=== PATIENT | male | born 1960 | race Hispanic/Latino ===

== ENCOUNTER 2017-03-07 16:01 | Emergency (ER) | payer OTHER ==
[2017-03-07] MEDS ORDERED: Morphine 4 MG/ML VIAL ONE (16:35)
[2017-03-07] MEDS ORDERED: Ondansetron HCl/PF 4 MG/2 ML Vial ONE ×2 (16:36→18:08)
[2017-03-07 16:48] LABS: Hematocrit 51.7 % (42.0-52.0); Mean Platelet Volume 7.1 fL (7.4-10.4); Red Blood Cell (RBC) Count 4.93 mill/uL (4.70-6.10); White Blood Cell (WBC) Count 8.8 thou/uL (4.8-10.8)
[2017-03-07] MEDS ORDERED: Iopamidol 370 76% 50 ML VIAL FS ONE (16:48)
[2017-03-07] MEDS ORDERED: ISOVUE-370 76%-LOCM 1 ML ONE (16:48)
[2017-03-07] MEDS ORDERED: Ketorolac Tromethamine 30 MG/ML VIAL ONE (17:01)
[2017-03-07 17:05] LABS: Band 3 % (5-11); Neutrophil 37 % (42-75); Reactive Lymphocytes 28 % (0-10)
[2017-03-07 17:06] LABS: ALT (SGPT) 35 U/L (8-55); AST (SGOT) 27 U/L (5-34); Alkaline Phosphatase 66 U/L (40-150); Anion Gap 13 mmol/L (10-20); BUN (Urea Nitrogen) 17 mg/dL (8.4-25.7); Bilirubin, Total 1.2 mg/dL (0.2-1.2); Calc. Creatinine Clearance 0 mL/min (70-130); Calcium 9.6 mg/dL (7.8-10.44); Carbon Dioxide 31 mmol/L (22-29); Chloride 99 mmol/L (98-107); Estimated GFR-MDRD 64; Globulin 3.7 g/dL (2.4-3.5); Lipase 22 U/L (8-78); Protein, Total 8.3 g/dL (6.0-8.3)
[2017-03-07 18:24] LABS: Bilirubin Negative (Negative); Blood, Urine Negative (Negative); Glucose, Urine (Dipstick) Negative (Negative); Ketone, Urine Negative (Negative); Nitrite Negative (Negative); Protein, Urine (Dipstick) Negative (Neg-Trace)
--- NOTE | 2017-03-07 19:51 | CT ---
CT ABDOMEN AND PELVIS WITH IV AND ORAL CONTRAST: History: Abdominal pain. Nausea and vomiting. Comparison: 11-25-10 FINDINGS: Minimal atelectasis is present at the right posterior lung base. Dystrophic calcification within the right liver lobe is stable. Post-operative changes of the upper abdomen include absence of the gallbl adder. A 0.2 cm calculus is present within a nondilated singh at the mid portion of the right kidney. The renal collecting systems and ureters are decompressed. Urinary bladder is unremarkable. No evide nce of bowel obstruction or inflammation. Small amount of fat protrudes through an umbilical hernia t hat does not contain bowel. IMPRESSION: 1. Tiny obstructing right renal calculus. 2. No acute abnormalities are otherwise demonstrated. POS: MARÍA
== END 2017-03-07 20:07 | disposition home or self-care (01) ==
LOC: ERS 16:01
DX: R11.2 Nausea with vomiting, unspecified (principal); R10.30 Lower abdominal pain, unspecified; K43.9 Ventral hernia without obstruction or gangrene; K21.9 Gastro-esophageal reflux disease without esophagitis; Z87.891 Personal history of nicotine dependence
CPT/HCPCS: 74177; 80053; 81003; 83690; 85025; 96361; 96374; 96375; 96376; J1885; J2270; J2405

== ENCOUNTER 2022-01-20 17:34 | Inpatient (IN) | payer OTHER ==
[2022-01-20 18:24] LABS: ALT (SGPT) 294 U/L (8-55); AST (SGOT) 201 U/L (5-34); Albumin 4.1 g/dL (3.4-4.8); Alkaline Phosphatase 72 U/L (40-110); Anion Gap 13 mmol/L (10-20); BUN (Urea Nitrogen) 10 mg/dL (8.4-25.7); Bilirubin, Total 0.8 mg/dL (0.2-1.2); CK (CPK) 67 U/L (30-200); Calc. Creatinine Clearance 0 mL/min (70-130); Calcium 9.7 mg/dL (7.8-10.44); Carbon Dioxide 27 mmol/L (23-31); Chloride 103 mmol/L (98-107); Estimated GFR 51; Glucose 109 mg/dL (80-115); Magnesium 1.7 mg/dL (1.6-2.6); Potassium 3.8 mmol/L (3.5-5.1); Protein, Total 8.1 g/dL (5.8-8.1); Sodium 139 mmol/L (136-145)
[2022-01-20] MEDS ORDERED: Magnesium 2 GM/50 ML BAG (IN WATER) ONE (18:30)
[2022-01-20 18:32] LABS: #Basophils 0.1 thou/uL (0.0-0.2); #Eosinphils 0.1 thou/uL (0.0-0.7); #Lymphocytes 4.6 thou/uL (1.20-3.40); #Monocytes 0.8 thou/uL (0.11-0.59); #Neutrophils 7.6 thou/uL (1.40-6.50); %Eosinophils 0.8 % (0.0-10.0); %Lymphocytes 34.6 % (21.0-51.0); %Monocytes 6.2 % (0.0-10.0); %Neutrophils 57.3 % (42.0-75.0); Hemoglobin 16.8 g/dL (14.0-18.0); Mean Corpuscular HGB CONC 31.9 g/dL (32.0-36.0); Mean Corpuscular Hemoglobin 34.3 pg (27.0-31.0); Platelet Count 274 thou/uL (130-400); RBC Distribution Width 12.2 % (11.5-14.5); Red Blood Cell (RBC) Count 4.89 mill/uL (4.70-6.10); White Blood Cell (WBC) Count 13.3 thou/uL (4.8-10.8)
[2022-01-20 18:45] LABS: MDiff Complete? YES; Macrocytosis SLIGHT = 6-15 cells (100X) (0-5/hpf); Platelet Morphology Comment Appears Adequate; Polychromasia SLIGHT = 2-3 cells (100X) (0-2/hpf)
[2022-01-20 18:46] LABS: CKMB 2.5 ng/mL (0-6.6)
[2022-01-20] MEDS ORDERED: Potassium Chloride 20 MEQ TAB ONE (19:45)
[2022-01-20] MEDS ORDERED: Acetaminophen 325 MG TAB PO PRN (20:14)
[2022-01-20] MEDS ORDERED: hydrALAZINE 20 MG/ML VIAL SLOW IVP PRN (20:14)
[2022-01-20] MEDS ORDERED: Electrolyte Replacement Protocol 1 EACH FS PRN (20:15)
[2022-01-20] MEDS ORDERED: Amiodarone 450 MG in Dextrose 5% in Water 250 ML IVPB SCH (20:45)
[2022-01-20 22:42] LABS: Prothrombin Time 13.7 sec (12.0-14.7)
[2022-01-20 22:43] VITALS: BMI 34.0
[2022-01-20 22:43] LABS: PTT 29.1 sec (22.9-36.1)
[2022-01-20 22:48] LABS: ALT (SGPT) 275 U/L (8-55); AST (SGOT) 200 U/L (5-34); Albumin 3.6 g/dL (3.4-4.8); Alkaline Phosphatase 65 U/L (40-110); Bilirubin, Direct 0.2 mg/dL (0.1-0.3); Bilirubin, Total 0.5 mg/dL (0.2-1.2); Phosphorus 2.5 mg/dL (2.3-4.7); Protein, Total 7.2 g/dL (5.8-8.1)
[2022-01-20] MEDS: Sodium Chloride 0.9% 1,000 ML IV SCH (22:56)
[2022-01-20] MEDS: Famotidine 20 MG TAB PO SCH (22:56)
[2022-01-20 23:27] LABS: CKMB 18.2 ng/mL (0-6.6)
[2022-01-20] MEDS: Enoxaparin Sodium 100 MG/ML SYRINGE SC SCH (23:39)
[2022-01-20] MEDS ORDERED: Loratadine 10 MG TAB PO SCH (23:59)
[2022-01-21 01:46] LABS: Bacteria/HPF None Seen HPF (None Seen); Bilirubin Negative (Negative); Blood, Urine Negative (Negative); Clarity Clear (Clear); Glucose, Urine (Dipstick) Normal (Negative); Ketone, Urine Negative (Negative); Leukocyte Negative Leu/uL (Negative); Nitrite Negative (Negative); Protein, Urine (Dipstick) Negative (Neg-Trace); RBC/HPF 0-3 HPF (0-3); Specific Gravity, Urine 1.022 (1.002-1.036); Squamous Epithelial 0-3 HPF (0-3); Urobilinogen Normal mg/dL (Less than 2); WBC/HPF 0-3 HPF (0-3)
[2022-01-21 01:49] LABS: Urine Culture Reflex No No
[2022-01-21 01:53] LABS: Amphetamine Not Detected (NotDetected); Barbiturates Screen Not Detected (NotDetected); Benzodiazepine Screen Not Detected (NotDetected); Cocaine Metabolite Screen Not Detected (NotDetected); Methadone Not Detected (NotDetected); Methamphetamine Not Detected (NotDetected); Opiate Screen Not Detected (NotDetected); Oxycodone Screen Not Detected (NotDetected); Phencyclidine (PCP) Not Detected (NotDetected); THC/Cannabinoid Screen Not Detected (NotDetected); Tricyclic Screen Not Detected (NotDetected)
[2022-01-21 06:01] LABS: #Basophils 0.1 thou/uL (0.0-0.2); #Eosinphils 0.1 thou/uL (0.0-0.7); #Lymphocytes 4.3 thou/uL (1.20-3.40); #Monocytes 0.9 thou/uL (0.11-0.59); #Neutrophils 5.1 thou/uL (1.40-6.50); %Basophils 0.9 % (0.0-1.0); %Eosinophils 1.3 % (0.0-10.0); %Lymphocytes 40.9 % (21.0-51.0); %Monocytes 8.6 % (0.0-10.0); %Neutrophils 48.3 % (42.0-75.0); Hemoglobin 15.3 g/dL (14.0-18.0); Mean Corpuscular HGB CONC 31.5 g/dL (32.0-36.0); Mean Corpuscular Hemoglobin 33.9 pg (27.0-31.0); Mean Platelet Volume 8.1 fL (7.4-10.4); Platelet Count 285 thou/uL (130-400); RBC Distribution Width 12.4 % (11.5-14.5); White Blood Cell (WBC) Count 10.6 thou/uL (4.8-10.8)
[2022-01-21 06:21] LABS: Anion Gap 11 mmol/L (10-20); BUN (Urea Nitrogen) 13 mg/dL (8.4-25.7); Calc. Creatinine Clearance 78 mL/min (70-130); Calcium 8.8 mg/dL (7.8-10.44); Carbon Dioxide 24 mmol/L (23-31); Cardiac Risk 5.2 (Less than 4.5); Chloride 107 mmol/L (98-107); Cholesterol 198 mg/dl (< 200 Desired); Estimated GFR 60; Glucose 106 mg/dL (80-115); HDL Cholesterol 38 mg/dL (>60 Neg Risk); LDL Cholesterol, Calculated 135 mg/dL; Potassium 4.2 mmol/L (3.5-5.1); Sodium 138 mmol/L (136-145); Triglycerides 123 mg/dL (Less than 150)
[2022-01-21] MEDS ORDERED: FLU VACC QS2022-23(6MOS UP)/PF 60 MCG/0.5 ML SYRINGE IM ONE (09:00)
[2022-01-21] MEDS: Famotidine 20 MG TAB PO SCH ×2 (09:05→20:10)
[2022-01-21] MEDS: Sodium Chloride 0.9% 1,000 ML IV SCH ×2 (09:06→20:13)
[2022-01-21] MEDS: Enoxaparin Sodium 100 MG/ML SYRINGE SC SCH ×2 (11:56→21:45)
[2022-01-21] MEDS: diphenhydrAMINE 25 MG CAP PO PRN ×2 (11:56→21:45)
[2022-01-21] MEDS ORDERED: Communication Order-Pharmacy FS SCH (12:00)
[2022-01-21] MEDS ORDERED: Aspirin 81 mg Enteric Coated Tablet PO SCH (12:15)
[2022-01-21] MEDS: Metoprolol Tartrate 25 MG TAB PO SCH (20:10)
[2022-01-22 05:17] LABS: ALT (SGPT) 217 U/L (8-55); AST (SGOT) 150 U/L (5-34); Albumin 3.4 g/dL (3.4-4.8); Alkaline Phosphatase 69 U/L (40-110); Anion Gap 13 mmol/L (10-20); BUN (Urea Nitrogen) 16 mg/dL (8.4-25.7); Bilirubin, Total 0.5 mg/dL (0.2-1.2); Calc. Creatinine Clearance 84 mL/min (70-130); Calcium 8.6 mg/dL (7.8-10.44); Carbon Dioxide 21 mmol/L (23-31); Chloride 108 mmol/L (98-107); Estimated GFR 66; Globulin 3.9 g/dL (2.4-3.5); Glucose 101 mg/dL (80-115); Magnesium 1.9 mg/dL (1.6-2.6); Potassium 4.6 mmol/L (3.5-5.1); Protein, Total 7.3 g/dL (5.8-8.1); Sodium 137 mmol/L (136-145)
[2022-01-22] MEDS: Famotidine 20 MG TAB PO SCH ×2 (06:16→21:14)
[2022-01-22] MEDS: Metoprolol Tartrate 25 MG TAB PO SCH ×2 (06:16→21:14)
[2022-01-22] MEDS ORDERED: Lidocaine 1% (PF) 30 ML VIAL ONE (06:46)
[2022-01-22] MEDS ORDERED: Midazolam HCl 2 mg/2 ml Vial ONE (07:20)
[2022-01-22] MEDS ORDERED: Fentanyl 100 MCG/2 ML VIAL ONE (07:20)
[2022-01-22] MEDS ORDERED: Heparin 10,000 UNITS/ 10 ML VIAL ONE (07:58)
[2022-01-22 08:05] LABS: Hemoglobin 15.3 g/dL (14.0-18.0); Mean Corpuscular HGB CONC 31.6 g/dL (32.0-36.0); Mean Corpuscular Hemoglobin 34.1 pg (27.0-31.0); Mean Platelet Volume 7.9 fL (7.4-10.4); Platelet Count 286 thou/uL (130-400); RBC Distribution Width 12.4 % (11.5-14.5); Red Blood Cell (RBC) Count 4.48 mill/uL (4.70-6.10)
[2022-01-22] MEDS ORDERED: Adenosine 6 MG/2 ML VIAL ONE (08:07)
[2022-01-22 08:27] LABS: Eosinophils 1 % (0-10); Lymphocytes 52 % (21-51); MDiff Complete? YES; Macrocytosis SLIGHT = 6-15 cells (100X) (0-5/hpf); Monocytes 7 % (0-10); Neutrophil 40 % (42-75); Platelet Morphology Comment Appears Adequate; Polychromasia SLIGHT = 2-3 cells (100X) (0-2/hpf)
[2022-01-22] MEDS ORDERED: Magnesium 2 GM/50 ML(in water) 2 GM in Premix Bag 1 BAG IVPB SCH (09:00)
[2022-01-22] MEDS ORDERED: Aspirin 81 mg Enteric Coated Tablet PO SCH (09:00)
[2022-01-22] MEDS ORDERED: Communication Order-Pharmacy FS SCH (13:01)
[2022-01-22] MEDS ORDERED: Iopamidol 370 76% 100 ML VIAL ONE (13:29)
[2022-01-22] MEDS ORDERED: Magnesium Oxide 400 MG TAB PO SCH (17:02)
[2022-01-22] MEDS: diphenhydrAMINE 25 MG CAP PO PRN (18:19)
[2022-01-22] MEDS: Sodium Chloride 0.9% 1,000 ML IV SCH (19:51)
[2022-01-23] MEDS ORDERED: ceFAZolin 2 GM/Dextrose 50 ML 2 GM in Premix Bag 1 BAG IVPB SCH (00:45)
[2022-01-23] MEDS: Sodium Chloride 0.9% 1,000 ML IV SCH (02:38)
[2022-01-23 05:10] LABS: #Basophils 0.1 thou/uL (0.0-0.2); #Eosinphils 0.2 thou/uL (0.0-0.7); #Lymphocytes 3.6 thou/uL (1.20-3.40); #Monocytes 0.7 thou/uL (0.11-0.59); %Basophils 0.8 % (0.0-1.0); %Eosinophils 2.8 % (0.0-10.0); %Lymphocytes 47.4 % (21.0-51.0); %Monocytes 9.3 % (0.0-10.0); %Neutrophils 39.7 % (42.0-75.0); Hemoglobin 16.1 g/dL (14.0-18.0); Mean Corpuscular Hemoglobin 34.4 pg (27.0-31.0); Mean Platelet Volume 8.3 fL (7.4-10.4); Platelet Count 279 thou/uL (130-400); RBC Distribution Width 12.3 % (11.5-14.5); White Blood Cell (WBC) Count 7.5 thou/uL (4.8-10.8)
[2022-01-23 05:30] LABS: ALT (SGPT) 230 U/L (8-55); AST (SGOT) 157 U/L (5-34); Albumin 3.7 g/dL (3.4-4.8); Alkaline Phosphatase 74 U/L (40-110); Anion Gap 13 mmol/L (10-20); BUN (Urea Nitrogen) 15 mg/dL (8.4-25.7); Bilirubin, Total 0.6 mg/dL (0.2-1.2); Calc. Creatinine Clearance 91 mL/min (70-130); Calcium 9.4 mg/dL (7.8-10.44); Carbon Dioxide 23 mmol/L (23-31); Chloride 105 mmol/L (98-107); Estimated GFR 73; Globulin 3.8 g/dL (2.4-3.5); Glucose 103 mg/dL (80-115); Potassium 4.3 mmol/L (3.5-5.1); Protein, Total 7.5 g/dL (5.8-8.1); Sodium 137 mmol/L (136-145)
[2022-01-23] MEDS: diphenhydrAMINE 25 MG CAP PO PRN (06:49)
[2022-01-23] MEDS: Metoprolol Tartrate 25 MG TAB PO SCH (06:49)
[2022-01-23] MEDS ORDERED: Albumin 5% 500 ML ONE (09:12)
[2022-01-23] MEDS ORDERED: fentaNYL Citrate/PF 100 MCG/2 ML SYRINGE ONE ×2 (09:21→09:51)
[2022-01-23] MEDS ORDERED: Vecuronium 10 MG VIAL ONE (09:22)
[2022-01-23] MEDS ORDERED: Phenylephrine 10 MG/ML VIAL ONE (09:22)
[2022-01-23] MEDS ORDERED: Norepinephrine 4 MG/4 ML VIAL ONE (09:22)
[2022-01-23] MEDS ORDERED: Nitroglycerin 50 MG/250 ML BOT 250 ML ONE (09:22)
[2022-01-23] MEDS ORDERED: Midazolam HCl 5 mg/5 ml Vial ONE (09:22)
[2022-01-23] MEDS ORDERED: Heparin 10,000 UNITS/1 ML VIAL 30,000 UNITS in Sodium Chloride 0.9% 1,000 ML FS SCH (09:45)
[2022-01-23] MEDS ORDERED: CEFAZOLIN 2 GM VIAL ONE (09:54)
[2022-01-23] MEDS ORDERED: Sodium Chloride 0.9% 100 ML ONE (09:54)
[2022-01-23] MEDS ORDERED: PHENYLEPHRINE-NS 100 MCG/ML 10 ML SYRINGE ONE ×2 (10:02→11:52)
[2022-01-23] MEDS ORDERED: Heparin 5,000 UNITS/ML VIAL ONE (10:02)
[2022-01-23] MEDS ORDERED: PROPOFOL 200 MG/20 ML VIAL ONE (10:02)
[2022-01-23] MEDS ORDERED: Thrombin 5000 UNITS/5 ML VIAL ONE (10:02)
[2022-01-23] MEDS ORDERED: ePHEDrine 50 MG/ML VIAL ONE (10:02)
[2022-01-23] MEDS ORDERED: Lidocaine 2% PF 100 mg/5 ml Syringe ONE (10:02)
[2022-01-23] MEDS ORDERED: Glycopyrrolate 0.2 MG/ML 5 ML SYRINGE ONE (10:02)
[2022-01-23] MEDS ORDERED: Cardioplegic Soln 1,000 ML BAG ONE (10:02)
[2022-01-23] MEDS ORDERED: Aminocaproic Acid 5 GM/20 ML VIAL ONE (10:02)
[2022-01-23] MEDS ORDERED: Mannitol 12.5 GM/50 ML ONE (10:02)
[2022-01-23] MEDS ORDERED: Heparin 30,000 units/30 ml VIAL ONE (10:02)
[2022-01-23] MEDS ORDERED: Magnesium Sulfate 1 GM/2 ML VIAL ONE (10:02)
[2022-01-23] MEDS ORDERED: Protamine Sulfate 250 MG/25 ML VIAL ONE (10:02)
[2022-01-23] MEDS ORDERED: Sodium Bicarb 50 MEQ/50 ML Abboject 8.4% SYRINGE ONE (10:02)
[2022-01-23] MEDS ORDERED: Papaverine 60 MG/2 ML VIAL ONE (10:02)
[2022-01-23] MEDS ORDERED: Rocuronium Bromide 10 MG/ML (10ML VIAL) ONE (10:02)
[2022-01-23] MEDS ORDERED: Calcium Chloride 1 GM/10 ML Abboject SYRINGE ONE (10:02)
[2022-01-23 13:36] LABS: SARS-CoV-2 PCR NAA for Saliva Not Detected (NotDetected)
[2022-01-23] MEDS ORDERED: Acetaminophen 325 MG TAB PO PRN (14:12)
[2022-01-23] MEDS ORDERED: Morphine 2 MG/ML VIAL SLOW IVP PRN (14:12)
[2022-01-23] MEDS ORDERED: NOREPINEPHRINE 8 MG/250 ML-D5W 250 ML IVPB PRN (14:12)
[2022-01-23] MEDS ORDERED: Mag-Al 1200 mg/1200 mg/30 ML UDCUP PO PRN (14:12)
[2022-01-23] MEDS ORDERED: Bisacodyl 10 MG SUPP PR PRN (14:12)
[2022-01-23] MEDS ORDERED: Fentanyl 100 MCG/2 ML VIAL SLOW IVP PRN ×2 (14:12)
[2022-01-23] MEDS ORDERED: Post-Op Insulin Drip Protocol IVPB SCH (14:12)
[2022-01-23] MEDS ORDERED: hydrALAZINE 20 MG/ML VIAL SLOW IVP PRN (14:12)
[2022-01-23] MEDS ORDERED: Ondansetron PF 4 MG/2 ML Vial IVP PRN (14:12)
[2022-01-23] MEDS ORDERED: niCARdipine 25 MG in Sodium Chloride 0.9% 250 ML 250 ML IVPB PRN (14:12)
[2022-01-23] MEDS ORDERED: Hetastarch 6% 500 ML 500 ML IVPB PRN (14:12)
[2022-01-23] MEDS ORDERED: Potassium Chloride 20 MEQ/100 ML PREMIX BAG IVPB PRN (14:12)
[2022-01-23] MEDS ORDERED: Guaifenesin DM 100-10/5 ML UDCUP PO PRN (14:12)
[2022-01-23] MEDS ORDERED: Bisacodyl 5 MG TAB PO PRN (14:12)
[2022-01-23] MEDS ORDERED: Fentanyl 100 MCG/2 ML VIAL ONE (14:20)
[2022-01-23 14:22] LABS: Actual Bicarbonate (HCO3a) 19.6 mEq/L (22-28); Base Excess (BEa) -5.7 mEq/L (-2.0 to +3.0); CO2 Tension 38.3 mmHg (35.0-45.0); Calcium, Ionized (arterial) 1.11 mmol/L (1.12-1.30); Carboxyhemoglobin (COHb) 0.6 gm% (0.0-3.0); Hemoglobin (Hb) 16.8 g/dL (14.0-18.0); O2 Tension (PaO2), arterial 139.7 mmHg (> 80.0); Potassium - ABG Lab 5.37 mmol/L (3.70-5.30); pH, Arterial 7.33 (7.35-7.45)
[2022-01-23 14:24] LABS: ALV-art Gradient 240.225 mmHg (0-20); Puncture Site Arterial Line
[2022-01-23 14:41] LABS: INR-International Normal Ratio 1.2; Prothrombin Time 14.9 sec (12.0-14.7)
[2022-01-23] MEDS ORDERED: Dextrose 50% Abboject 50 ML SYRINGE SLOW IVP PRN (14:45)
[2022-01-23] MEDS ORDERED: HUMULIN R 100 UNITS in Sodium Chloride 0.9% 100 ML IVPB SCH (14:45)
[2022-01-23] MEDS ORDERED: Dextrose 5% in Water 1,000 ML IV PRN (14:45)
[2022-01-23 14:46] LABS: Anion Gap 14 mmol/L (10-20); BUN (Urea Nitrogen) 15 mg/dL (8.4-25.7); Calc. Creatinine Clearance 88 mL/min (70-130); Calcium 8.1 mg/dL (7.8-10.44); Carbon Dioxide 18 mmol/L (23-31); Chloride 110 mmol/L (98-107); Estimated GFR 70; Glucose 136 mg/dL (80-115); Potassium 5.5 mmol/L (3.5-5.1); Sodium 136 mmol/L (136-145)
[2022-01-23] MEDS: Lactated Ringer's 1,000 ML IV SCH (14:48)
[2022-01-23 14:52] LABS: Hemoglobin 16.5 g/dL (14.0-18.0); Mean Corpuscular Hemoglobin 34.7 pg (27.0-31.0); Mean Platelet Volume 8.4 fL (7.4-10.4); Platelet Count 170 thou/uL (130-400); RBC Distribution Width 12.4 % (11.5-14.5); Red Blood Cell (RBC) Count 4.75 mill/uL (4.70-6.10); White Blood Cell (WBC) Count 25.4 thou/uL (4.8-10.8)
[2022-01-23] MEDS: Insulin Regular 300 UNITS/3 ML VIAL SC PRN ×2 (14:53→17:04)
[2022-01-23 15:11] LABS: Band 14 % (5-11); Eosinophils 1 % (0-10); Lymphocytes 11 % (21-51); MDiff Complete? YES; Macrocytosis SLIGHT = 6-15 cells (100X) (0-5/hpf); Monocytes 3 % (0-10); Neutrophil 70 % (42-75); Platelet Morphology Comment Appears Adequate; Polychromasia SLIGHT = 2-3 cells (100X) (0-2/hpf); Reactive Lymphocytes 1 % (0-10)
[2022-01-23 16:58] LABS: Actual Bicarbonate (HCO3a) 19.6 mEq/L (22-28); Base Excess (BEa) -5.7 mEq/L (-2.0 to +3.0); CO2 Tension 38.1 mmHg (35.0-45.0); Carboxyhemoglobin (COHb) 0.8 gm% (0.0-3.0); Hemoglobin (Hb) 15.1 g/dL (14.0-18.0); O2 Tension (PaO2), arterial 79.1 mmHg (> 80.0); Potassium - ABG Lab 5.11 mmol/L (3.70-5.30); pH, Arterial 7.33 (7.35-7.45)
[2022-01-23 17:00] LABS: ALV-art Gradient 87.175 mmHg (0-20); Puncture Site Arterial Line
[2022-01-23] MEDS: Ketorolac Tromethamine 30 MG/ML VIAL IVP SCH (17:00)
[2022-01-23] MEDS: CEFAZOLIN 2 GM in Sodium Chloride 0.9% 100 ML IVPB SCH (17:24)
[2022-01-23] MEDS: HYDROcodone/Acetaminophen 5/325 mg Tablet PO PRN (17:44)
[2022-01-23 19:35] LABS: Potassium 5.6 mmol/L (3.5-5.1)
[2022-01-23] MEDS: Famotidine/PF 20 mg/2ml Vial SLOW IVP SCH (20:06)
[2022-01-24] MEDS: Ketorolac Tromethamine 30 MG/ML VIAL IVP SCH ×5 (00:15→23:40)
[2022-01-24] MEDS: CEFAZOLIN 2 GM in Sodium Chloride 0.9% 100 ML IVPB SCH ×2 (02:30→11:08)
[2022-01-24 04:16] LABS: #Lymphocytes 3.4 thou/uL (1.20-3.40); #Monocytes 1.2 thou/uL (0.11-0.59); #Neutrophils 8.2 thou/uL (1.40-6.50); %Basophils 0.3 % (0.0-1.0); %Eosinophils 0.3 % (0.0-10.0); %Lymphocytes 26.2 % (21.0-51.0); %Monocytes 9.7 % (0.0-10.0); %Neutrophils 63.5 % (42.0-75.0); Hemoglobin 12.2 g/dL (14.0-18.0); Mean Corpuscular HGB CONC 31.9 g/dL (32.0-36.0); Mean Corpuscular Hemoglobin 34.6 pg (27.0-31.0); Mean Platelet Volume 8.5 fL (7.4-10.4); Platelet Count 151 thou/uL (130-400); RBC Distribution Width 12.4 % (11.5-14.5); Red Blood Cell (RBC) Count 3.51 mill/uL (4.70-6.10); White Blood Cell (WBC) Count 12.8 thou/uL (4.8-10.8)
[2022-01-24 04:28] LABS: Anion Gap 11 mmol/L (10-20); BUN (Urea Nitrogen) 17 mg/dL (8.4-25.7); Calc. Creatinine Clearance 94 mL/min (70-130); Calcium 7.9 mg/dL (7.8-10.44); Carbon Dioxide 23 mmol/L (23-31); Chloride 107 mmol/L (98-107); Estimated GFR 70; Glucose 124 mg/dL (80-115); Potassium 4.6 mmol/L (3.5-5.1); Sodium 136 mmol/L (136-145)
[2022-01-24] MEDS: HYDROcodone/Acetaminophen 5/325 mg Tablet PO PRN ×2 (09:47→17:42)
[2022-01-24] MEDS: Aspirin 325 MG TAB PO SCH (09:47)
[2022-01-24] MEDS: Famotidine/PF 20 mg/2ml Vial SLOW IVP SCH ×2 (09:48→20:37)
[2022-01-24] MEDS: Lactated Ringer's 1,000 ML IV SCH (10:51)
[2022-01-24] MEDS ORDERED: Insulin Glargine 30 UNITS/0.3 ML VIAL SC PRN (14:35)
[2022-01-24] MEDS: Latanoprost 0.005% Ophth Soln 2.5 ml Bottle EA EYE SCH (20:41)
[2022-01-25 04:38] LABS: #Eosinphils 0.2 thou/uL (0.0-0.7); #Lymphocytes 4.8 thou/uL (1.20-3.40); #Monocytes 1.6 thou/uL (0.11-0.59); #Neutrophils 9.2 thou/uL (1.40-6.50); %Basophils 0.3 % (0.0-1.0); %Eosinophils 1.1 % (0.0-10.0); %Lymphocytes 30.1 % (21.0-51.0); %Monocytes 9.9 % (0.0-10.0); %Neutrophils 58.6 % (42.0-75.0); Mean Corpuscular HGB CONC 31.5 g/dL (32.0-36.0); Mean Corpuscular Hemoglobin 34.3 pg (27.0-31.0); Mean Platelet Volume 8.5 fL (7.4-10.4); Platelet Count 158 thou/uL (130-400); RBC Distribution Width 12.7 % (11.5-14.5); Red Blood Cell (RBC) Count 3.21 mill/uL (4.70-6.10); White Blood Cell (WBC) Count 15.8 thou/uL (4.8-10.8)
[2022-01-25 05:04] LABS: Anion Gap 11 mmol/L (10-20); BUN (Urea Nitrogen) 16 mg/dL (8.4-25.7); Calc. Creatinine Clearance 109 mL/min (70-130); Calcium 7.8 mg/dL (7.8-10.44); Carbon Dioxide 22 mmol/L (23-31); Chloride 109 mmol/L (98-107); Estimated GFR 83; Glucose 120 mg/dL (80-115); Potassium 4.4 mmol/L (3.5-5.1); Sodium 138 mmol/L (136-145)
[2022-01-25 05:21] LABS: ALT (SGPT) 83 U/L (8-55); AST (SGOT) 80 U/L (5-34); Albumin 3.2 g/dL (3.4-4.8); Alkaline Phosphatase 40 U/L (40-110); Anion Gap 10 mmol/L (10-20); BUN (Urea Nitrogen) 17 mg/dL (8.4-25.7); Bilirubin, Direct 0.3 mg/dL (0.1-0.3); Bilirubin, Total 0.7 mg/dL (0.2-1.2); Calc. Creatinine Clearance 102 mL/min (70-130); Calcium 7.8 mg/dL (7.8-10.44); Carbon Dioxide 23 mmol/L (23-31); Chloride 108 mmol/L (98-107); Estimated GFR 77; Globulin 2.2 g/dL (2.4-3.5); Glucose 120 mg/dL (80-115); Potassium 4.4 mmol/L (3.5-5.1); Protein, Total 5.4 g/dL (5.8-8.1); Sodium 137 mmol/L (136-145)
[2022-01-25] MEDS: Ketorolac Tromethamine 30 MG/ML VIAL IVP SCH ×3 (06:03→16:46)
[2022-01-25] MEDS ORDERED: Nitroglycerin 0.4 MG TAB (25 Tab Bottle) SL PRN (07:10)
[2022-01-25] MEDS: Polyethylene Glycol 3350 17 GM Packet PO SCH (07:49)
[2022-01-25] MEDS: Aspirin 325 MG TAB PO SCH (07:50)
[2022-01-25] MEDS: Famotidine 20 MG TAB PO SCH ×2 (07:50→20:03)
[2022-01-25] MEDS: diphenhydrAMINE 25 MG CAP PO PRN ×3 (07:50→20:11)
[2022-01-25] MEDS: Potassium Chloride 20 MEQ TAB PO SCH (07:51)
[2022-01-25] MEDS: Furosemide 40 MG TAB PO SCH ×2 (07:51→20:03)
[2022-01-25] MEDS: Metoprolol Tartrate 25 MG TAB PO SCH ×2 (09:38→20:03)
[2022-01-25] MEDS: HYDROcodone/Acetaminophen 5/325 mg Tablet PO PRN (15:11)
[2022-01-25] MEDS: Enoxaparin Sodium 40 MG/0.4 ML SYRINGE SC SCH (20:02)
[2022-01-25] MEDS: Latanoprost 0.005% Ophth Soln 2.5 ml Bottle EA EYE SCH (20:04)
[2022-01-26] MEDS: HYDROcodone/Acetaminophen 5/325 mg Tablet PO PRN ×2 (00:42→07:53)
[2022-01-26] MEDS: Ketorolac Tromethamine 30 MG/ML VIAL IVP SCH ×2 (00:43→05:58)
[2022-01-26 05:03] LABS: #Basophils 0.1 thou/uL (0.0-0.2); #Eosinphils 0.3 thou/uL (0.0-0.7); #Lymphocytes 4.9 thou/uL (1.20-3.40); #Monocytes 1.4 thou/uL (0.11-0.59); #Neutrophils 8.5 thou/uL (1.40-6.50); %Basophils 0.4 % (0.0-1.0); %Eosinophils 2.1 % (0.0-10.0); %Lymphocytes 32.3 % (21.0-51.0); %Monocytes 9.2 % (0.0-10.0); Hemoglobin 11.2 g/dL (14.0-18.0); Mean Corpuscular HGB CONC 32.3 g/dL (32.0-36.0); Mean Corpuscular Hemoglobin 35.1 pg (27.0-31.0); Mean Platelet Volume 8.6 fL (7.4-10.4); Platelet Count 201 thou/uL (130-400); RBC Distribution Width 12.7 % (11.5-14.5); White Blood Cell (WBC) Count 15.2 thou/uL (4.8-10.8)
[2022-01-26 05:20] LABS: ALT (SGPT) 75 U/L (8-55); AST (SGOT) 78 U/L (5-34); Albumin 3.4 g/dL (3.4-4.8); Alkaline Phosphatase 65 U/L (40-110); Anion Gap 11 mmol/L (10-20); BUN (Urea Nitrogen) 19 mg/dL (8.4-25.7); Bilirubin, Direct 0.3 mg/dL (0.1-0.3); Bilirubin, Total 0.8 mg/dL (0.2-1.2); Calc. Creatinine Clearance 92 mL/min (70-130); Calcium 8.6 mg/dL (7.8-10.44); Carbon Dioxide 26 mmol/L (23-31); Chloride 105 mmol/L (98-107); Estimated GFR 68; Glucose 91 mg/dL (80-115); Potassium 4.5 mmol/L (3.5-5.1); Protein, Total 6.7 g/dL (5.8-8.1); Sodium 137 mmol/L (136-145)
[2022-01-26] MEDS: diphenhydrAMINE 25 MG CAP PO PRN ×2 (07:53→23:17)
[2022-01-26] MEDS: Aspirin 325 MG TAB PO SCH (07:53)
[2022-01-26] MEDS: Polyethylene Glycol 3350 17 GM Packet PO SCH (07:53)
[2022-01-26] MEDS: Metoprolol Tartrate 25 MG TAB PO SCH ×3 (07:54→23:15)
[2022-01-26] MEDS: Famotidine 20 MG TAB PO SCH ×2 (07:54→23:15)
[2022-01-26] MEDS: Potassium Chloride 20 MEQ TAB PO SCH (07:54)
[2022-01-26] MEDS: Furosemide 40 MG TAB PO SCH ×2 (07:55→23:30)
[2022-01-26] MEDS: Latanoprost 0.005% Ophth Soln 2.5 ml Bottle EA EYE SCH (23:00)
[2022-01-26] MEDS: Enoxaparin Sodium 40 MG/0.4 ML SYRINGE SC SCH (23:01)
[2022-01-26] MEDS: Atorvastatin Calcium 10 MG TAB PO SCH (23:01)
[2022-01-27] MEDS: diphenhydrAMINE 25 MG CAP PO PRN (05:06)
[2022-01-27] MEDS ORDERED: diphenhydrAMINE 25 MG CAP PO PRN (07:41)
[2022-01-27 08:09] LABS: #Eosinphils 0.4 thou/uL (0.0-0.7); #Lymphocytes 4.3 thou/uL (1.20-3.40); #Monocytes 1.5 thou/uL (0.11-0.59); #Neutrophils 6.4 thou/uL (1.40-6.50); %Basophils 0.2 % (0.0-1.0); %Lymphocytes 34.2 % (21.0-51.0); %Monocytes 11.7 % (0.0-10.0); Hemoglobin 11.1 g/dL (14.0-18.0); Mean Corpuscular Hemoglobin 34.9 pg (27.0-31.0); Mean Platelet Volume 7.6 fL (7.4-10.4); Platelet Count 271 thou/uL (130-400); RBC Distribution Width 13.2 % (11.5-14.5); Red Blood Cell (RBC) Count 3.18 mill/uL (4.70-6.10); White Blood Cell (WBC) Count 12.5 thou/uL (4.8-10.8)
[2022-01-27 08:22] LABS: ALT (SGPT) 80 U/L (8-55); AST (SGOT) 80 U/L (5-34); Albumin 3.4 g/dL (3.4-4.8); Alkaline Phosphatase 51 U/L (40-110); Anion Gap 13 mmol/L (10-20); BUN (Urea Nitrogen) 20 mg/dL (8.4-25.7); Bilirubin, Total 0.8 mg/dL (0.2-1.2); Calc. Creatinine Clearance 86 mL/min (70-130); Calcium 8.8 mg/dL (7.8-10.44); Carbon Dioxide 25 mmol/L (23-31); Chloride 104 mmol/L (98-107); Estimated GFR 64; Globulin 2.9 g/dL (2.4-3.5); Glucose 96 mg/dL (80-115); Potassium 4.7 mmol/L (3.5-5.1); Protein, Total 6.3 g/dL (5.8-8.1); Sodium 137 mmol/L (136-145)
[2022-01-27] MEDS: Potassium Chloride 20 MEQ TAB PO SCH (09:39)
[2022-01-27] MEDS: Furosemide 40 MG TAB PO SCH ×2 (09:40→22:36)
[2022-01-27] MEDS: Famotidine 20 MG TAB PO SCH ×2 (09:40→22:34)
[2022-01-27] MEDS: Aspirin 325 MG TAB PO SCH (09:40)
[2022-01-27] MEDS: Metoprolol Tartrate 25 MG TAB PO SCH ×2 (09:42→22:34)
[2022-01-27] MEDS: Polyethylene Glycol 3350 17 GM Packet PO SCH (09:44)
[2022-01-27] MEDS: HYDROcodone/Acetaminophen 5/325 mg Tablet PO PRN (17:57)
[2022-01-27] MEDS: Enoxaparin Sodium 40 MG/0.4 ML SYRINGE SC SCH (22:33)
[2022-01-27] MEDS: Atorvastatin Calcium 10 MG TAB PO SCH (22:34)
[2022-01-27] MEDS: Latanoprost 0.005% Ophth Soln 2.5 ml Bottle EA EYE SCH (22:35)
[2022-01-28] MEDS: HYDROcodone/Acetaminophen 5/325 mg Tablet PO PRN (01:40)
[2022-01-28 05:02] LABS: #Eosinphils 0.4 thou/uL (0.0-0.7); #Lymphocytes 5.2 thou/uL (1.20-3.40); #Monocytes 1.5 thou/uL (0.11-0.59); #Neutrophils 4.6 thou/uL (1.40-6.50); %Basophils 0.4 % (0.0-1.0); %Eosinophils 3.3 % (0.0-10.0); %Lymphocytes 44.5 % (21.0-51.0); %Monocytes 12.4 % (0.0-10.0); %Neutrophils 39.3 % (42.0-75.0); Hemoglobin 11.4 g/dL (14.0-18.0); Mean Corpuscular HGB CONC 32.4 g/dL (32.0-36.0); Mean Corpuscular Hemoglobin 35.1 pg (27.0-31.0); Mean Platelet Volume 7.5 fL (7.4-10.4); Platelet Count 318 thou/uL (130-400); RBC Distribution Width 12.7 % (11.5-14.5); Red Blood Cell (RBC) Count 3.24 mill/uL (4.70-6.10); White Blood Cell (WBC) Count 11.7 thou/uL (4.8-10.8)
[2022-01-28] MEDS ORDERED: Furosemide 40 MG TAB PO SCH (07:30)
[2022-01-28 07:56] LABS: ALT (SGPT) 82 U/L (8-55); AST (SGOT) 75 U/L (5-34); Albumin 3.5 g/dL (3.4-4.8); Alkaline Phosphatase 60 U/L (40-110); Anion Gap 18 mmol/L (10-20); BUN (Urea Nitrogen) 24 mg/dL (8.4-25.7); Bilirubin, Total 0.6 mg/dL (0.2-1.2); Calc. Creatinine Clearance 75 mL/min (70-130); Calcium 9.3 mg/dL (7.8-10.44); Carbon Dioxide 22 mmol/L (23-31); Chloride 105 mmol/L (98-107); Estimated GFR 57; Globulin 3.2 g/dL (2.4-3.5); Glucose 95 mg/dL (80-115); Potassium 4.7 mmol/L (3.5-5.1); Protein, Total 6.7 g/dL (5.8-8.1); Sodium 140 mmol/L (136-145)
[2022-01-28] MEDS ORDERED: Potassium Chloride 10 MEQ TAB PO SCH (08:00)
[2022-01-28] MEDS: Metoprolol Tartrate 25 MG TAB PO SCH (10:20)
[2022-01-28] MEDS: Aspirin 325 MG TAB PO SCH (10:20)
[2022-01-28] MEDS: Famotidine 20 MG TAB PO SCH (10:21)
[2022-01-28] MEDS: Polyethylene Glycol 3350 17 GM Packet PO SCH (10:21)
[2022-01-28 13:02] VITALS: BP 106/55; TEMP 98.3
== END 2022-01-28 13:30 | disposition home or self-care (01) | DRG 234 ==
LOC: ERS 17:34 → SUATTDRO 17:34 → 2SW 19:53 → OBSVTOIN 01-21 16:31 → CCU 01-23 08:20 → 2NO 01-26 21:57
PROVIDERS: ADMIT Student in an Organized Health Care Education/Training Program; ATTEND Internal Medicine
PROC: 4A023N7 Measurement of Cardiac Sampling and Pressure, Left Heart, Percutaneous Approach (ICD-10-PCS; 2022-01-22)
PROC: B2111ZZ Fluoroscopy of Multiple Coronary Arteries using Low Osmolar Contrast (ICD-10-PCS; 2022-01-22)
PROC: B2151ZZ Fluoroscopy of Left Heart using Low Osmolar Contrast (ICD-10-PCS; 2022-01-22)
PROC: 02100Z9 Bypass Coronary Artery, One Artery from Left Internal Mammary, Open Approach (ICD-10-PCS; principal; 2022-01-23)
PROC: 021209W Bypass Coronary Artery, Three Arteries from Aorta with Autologous Venous Tissue, Open Approach (ICD-10-PCS; 2022-01-23)
PROC: 06BP3ZZ Excision of Right Saphenous Vein, Percutaneous Approach (ICD-10-PCS; 2022-01-23)
PROC: 5A1221Z Performance of Cardiac Output, Continuous (ICD-10-PCS; 2022-01-23)
PROC: 02L70CK Occlusion of Left Atrial Appendage with Extraluminal Device, Open Approach (ICD-10-PCS; 2022-01-23)
DX: I21.4 Non-ST elevation (NSTEMI) myocardial infarction (principal); N17.9 Acute kidney failure, unspecified; I47.20 Ventricular tachycardia, unspecified; I25.10 Atherosclerotic heart disease of native coronary artery without angina pectoris; I10 Essential (primary) hypertension; G89.29 Other chronic pain; K76.0 Fatty (change of) liver, not elsewhere classified; K21.9 Gastro-esophageal reflux disease without esophagitis; F10.10 Alcohol abuse, uncomplicated; F15.10 Other stimulant abuse, uncomplicated; E78.5 Hyperlipidemia, unspecified; Z20.822 Contact with and (suspected) exposure to COVID-19; Z88.1 Allergy status to other antibiotic agents; Z90.81 Acquired absence of spleen; Z87.891 Personal history of nicotine dependence
CPT/HCPCS: 36415; 36416; 36430; 71045; 76705; 80048; 80053; 80061; 80076; 80306; 81001; 82550; 82553; 82805; 83735; 83880; 84100; 84443; 84484; 85025; 85610; 85730; 86850; 86900; 86901; 93005; 93010; 93306; 93458; 93798; 94002; 94760; 96365; 96366; 96368; 96372; 97139; 99152; 99153; C1713; C1751; C1769; G0378; J0153; J0282; J0690; J1642; J1644; J1650; J1815; J1885; J2001; J2150; J2250; J2370; J2405; J2440; J2704; J2720; J3010; J3370; J3475; J3480; J3490; J7050; J7070; J7120; P9045; Q9967; S0017; S0028; U0003; U0005

== ENCOUNTER 2022-02-17 12:02 | Inpatient (IN) | payer OTHER ==
[~2022-02-17 12:02] MED LIST: Iopamidol-370 76% 500 ML 1 ML ONE
[2022-02-17] MEDS ORDERED: Azithromycin 500 MG VIAL ONE (12:44)
[2022-02-17] MEDS ORDERED: methylPREDNISolone Sod Succ/PF 125 MG/2 ML VIAL ONE (12:44)
[2022-02-17] MEDS ORDERED: cefTRIAXone\\ROCEPHIN 1 GM VIAL ONE (12:44)
[2022-02-17] MEDS ORDERED: Magnesium 2 GM/50 ML BAG (IN WATER) ONE (12:44)
[2022-02-17 13:05] LABS: #Basophils 0.1 thou/uL (0.0-0.2); #Eosinphils 0.3 thou/uL (0.0-0.7); #Lymphocytes 3.7 thou/uL (1.20-3.40); #Neutrophils 6.9 thou/uL (1.40-6.50); %Eosinophils 2.3 % (0.0-10.0); %Neutrophils 57.7 % (42.0-75.0); Hemoglobin 14.4 g/dL (14.0-18.0); Mean Corpuscular Hemoglobin 35.3 pg (27.0-31.0); Mean Platelet Volume 7.3 fL (7.4-10.4); Platelet Count 313 thou/uL (130-400); RBC Distribution Width 12.7 % (11.5-14.5); Red Blood Cell (RBC) Count 4.08 mill/uL (4.70-6.10)
[2022-02-17 13:28] LABS: ALT (SGPT) 60 U/L (8-55); AST (SGOT) 69 U/L (5-34); Albumin 3.8 g/dL (3.4-4.8); Alkaline Phosphatase 109 U/L (40-110); Anion Gap 11 mmol/L (10-20); BUN (Urea Nitrogen) 13 mg/dL (8.4-25.7); CK (CPK) 55 U/L (30-200); Calc. Creatinine Clearance 0 mL/min (70-130); Calcium 9.6 mg/dL (7.8-10.44); Carbon Dioxide 27 mmol/L (23-31); Chloride 103 mmol/L (98-107); Estimated GFR 63; Globulin 4.1 g/dL (2.4-3.5); Glucose 102 mg/dL (80-115); Lipase 22 U/L (8-78); Potassium 4.4 mmol/L (3.5-5.1); Protein, Total 7.9 g/dL (5.8-8.1); Sodium 137 mmol/L (136-145)
[2022-02-17 13:48] LABS: Bacteria/HPF None Seen HPF (None Seen); Bilirubin Negative (Negative); Blood, Urine Negative (Negative); Clarity Clear (Clear); Glucose, Urine (Dipstick) Normal (Negative); Ketone, Urine Negative (Negative); Leukocyte 25 Leu/uL (Negative); Nitrite Negative (Negative); Protein, Urine (Dipstick) 20 mg/dL (Neg-Trace); RBC/HPF None Seen HPF (0-3); Specific Gravity, Urine 1.029 (1.002-1.036); Squamous Epithelial 0-3 HPF (0-3); Urobilinogen Normal mg/dL (Less than 2)
[2022-02-17] MEDS ORDERED: Furosemide 40 MG/4 ML VIAL ONE (14:06)
[2022-02-17] MEDS ORDERED: Enoxaparin Sodium 40 MG/0.4 ML SYRINGE SC SCH ×2 (16:00→21:30)
[2022-02-17] MEDS ORDERED: Nitroglycerin 2% Ointment 1 INCH/1 GM Packet ONE (16:09)
[2022-02-17] MEDS ORDERED: HYDROcodone/Acetaminophen 5/325 mg Tablet PO PRN (17:03)
[2022-02-17 18:21] VITALS: BMI 33.9
[2022-02-17] MEDS: Latanoprost 0.005% Ophth Soln 2.5 ml Bottle EA EYE SCH (21:39)
[2022-02-17] MEDS: Atorvastatin Calcium 10 MG TAB PO SCH (21:40)
[2022-02-17] MEDS: Metoprolol Tartrate 25 MG TAB PO SCH (21:40)
[2022-02-18] MEDS: Furosemide 40 MG/4 ML VIAL SLOW IVP SCH ×2 (05:22→14:06)
[2022-02-18 07:38] LABS: Amphetamine Not Detected (NotDetected); Barbiturates Screen Not Detected (NotDetected); Benzodiazepine Screen Not Detected (NotDetected); Cocaine Metabolite Screen Not Detected (NotDetected); Methadone Not Detected (NotDetected); Methamphetamine Not Detected (NotDetected); Opiate Screen Not Detected (NotDetected); Oxycodone Screen Not Detected (NotDetected); Phencyclidine (PCP) Not Detected (NotDetected); THC/Cannabinoid Screen Not Detected (NotDetected); Tricyclic Screen Not Detected (NotDetected)
[2022-02-18] MEDS ORDERED: Aspirin Chewable 81 MG TAB PO SCH (09:00)
[2022-02-18] MEDS: Aspirin 325 MG TAB PO SCH (09:16)
[2022-02-18] MEDS: Enoxaparin Sodium 40 MG/0.4 ML SYRINGE SC SCH (09:16)
[2022-02-18] MEDS: Metoprolol Tartrate 25 MG TAB PO SCH ×2 (09:16→21:28)
[2022-02-18 10:06] LABS: Anion Gap 16 mmol/L (10-20); BUN (Urea Nitrogen) 25 mg/dL (8.4-25.7); Calc. Creatinine Clearance 81 mL/min (70-130); Calcium 9.7 mg/dL (7.8-10.44); Carbon Dioxide 21 mmol/L (23-31); Chloride 100 mmol/L (98-107); Estimated GFR 63; Glucose 164 mg/dL (80-115); Potassium 4.5 mmol/L (3.5-5.1); Sodium 132 mmol/L (136-145)
[2022-02-18 10:10] LABS: Troponin I 0.018 ng/mL (< 0.028)
[2022-02-18 11:08] LABS: Hemoglobin 13.3 g/dL (14.0-18.0); Mean Corpuscular HGB CONC 32.7 g/dL (32.0-36.0); Mean Corpuscular Hemoglobin 36.1 pg (27.0-31.0); Mean Platelet Volume 7.8 fL (7.4-10.4); Platelet Count 290 thou/uL (130-400); RBC Distribution Width 12.7 % (11.5-14.5); Red Blood Cell (RBC) Count 3.69 mill/uL (4.70-6.10); White Blood Cell (WBC) Count 23.8 thou/uL (4.8-10.8)
[2022-02-18 11:45] LABS: Band 22 % (5-11); Lymphocytes 8 % (21-51); MDiff Complete? YES; Microcytosis SLIGHT = 6-15 cells (100X) (0-5/hpf); Monocytes 5 % (0-10); Neutrophil 65 % (42-75); Platelet Morphology Comment Appears Adequate; Polychromasia SLIGHT = 2-3 cells (100X) (0-2/hpf)
[2022-02-18] MEDS: Latanoprost 0.005% Ophth Soln 2.5 ml Bottle EA EYE SCH (21:28)
[2022-02-18] MEDS: Atorvastatin Calcium 10 MG TAB PO SCH (21:28)
[2022-02-18] MEDS ORDERED: Famotidine 20 MG TAB PO SCH (21:45)
[2022-02-19 04:35] LABS: #Basophils 0.1 thou/uL (0.0-0.2); #Eosinphils 0.1 thou/uL (0.0-0.7); #Lymphocytes 5.8 thou/uL (1.20-3.40); #Neutrophils 10.3 thou/uL (1.40-6.50); %Basophils 0.3 % (0.0-1.0); %Eosinophils 0.8 % (0.0-10.0); %Lymphocytes 33.7 % (21.0-51.0); %Monocytes 5.6 % (0.0-10.0); %Neutrophils 59.6 % (42.0-75.0); Hemoglobin 13.2 g/dL (14.0-18.0); Mean Corpuscular HGB CONC 31.5 g/dL (32.0-36.0); Mean Corpuscular Hemoglobin 34.2 pg (27.0-31.0); Mean Platelet Volume 7.9 fL (7.4-10.4); Platelet Count 287 thou/uL (130-400); RBC Distribution Width 12.9 % (11.5-14.5); Red Blood Cell (RBC) Count 3.87 mill/uL (4.70-6.10); White Blood Cell (WBC) Count 17.2 thou/uL (4.8-10.8)
[2022-02-19 04:58] LABS: Anion Gap 14 mmol/L (10-20); BUN (Urea Nitrogen) 30 mg/dL (8.4-25.7); Calc. Creatinine Clearance 87 mL/min (70-130); Calcium 9.1 mg/dL (7.8-10.44); Carbon Dioxide 20 mmol/L (23-31); Chloride 106 mmol/L (98-107); Estimated GFR 69; Glucose 136 mg/dL (80-115); Magnesium 2.3 mg/dL (1.6-2.6); Potassium 5.1 mmol/L (3.5-5.1); Sodium 135 mmol/L (136-145)
[2022-02-19] MEDS ORDERED: Furosemide 40 MG TAB PO SCH (07:30)
[2022-02-19] MEDS: Metoprolol Tartrate 25 MG TAB PO SCH (08:36)
[2022-02-19] MEDS: Enoxaparin Sodium 40 MG/0.4 ML SYRINGE SC SCH (08:36)
[2022-02-19] MEDS: Aspirin 325 MG TAB PO SCH (08:36)
[2022-02-19] MEDS ORDERED: Famotidine 20 MG TAB PO SCH (09:00)
[2022-02-19] MEDS ORDERED: Famotidine/PF 20 mg/2ml Vial SLOW IVP SCH (09:00)
[2022-02-19 12:29] VITALS: BP 131/83; TEMP 97.1
== END 2022-02-19 13:15 | disposition home or self-care (01) | DRG 291 ==
LOC: ERS 12:02 → 2NO 16:00
PROVIDERS: ADMIT Hospitalist; ATTEND Hospitalist
DX: I11.0 Hypertensive heart disease with heart failure (principal); I50.33 Acute on chronic diastolic (congestive) heart failure; J96.01 Acute respiratory failure with hypoxia; I47.20 Ventricular tachycardia, unspecified; F15.10 Other stimulant abuse, uncomplicated; I25.10 Atherosclerotic heart disease of native coronary artery without angina pectoris; E78.5 Hyperlipidemia, unspecified; Z95.1 Presence of aortocoronary bypass graft; Z95.810 Presence of automatic (implantable) cardiac defibrillator; Z88.1 Allergy status to other antibiotic agents; Z79.899 Other long term (current) drug therapy; Z82.49 Family history of ischemic heart disease and other diseases of the circulatory system; Z83.79 Family history of other diseases of the digestive system
CPT/HCPCS: 36415; 71045; 71275; 80048; 80053; 80306; 81003; 81015; 82550; 83605; 83690; 83735; 83880; 84145; 84484; 85025; 87040; 93005; 93306; 93798; 94640; 94660; J0456; J0696; J1650; J1940; J2930; J3475; J7620; Q9967